=== PATIENT | female | born 1970 | race Caucasian/White ===

== ENCOUNTER 2018-05-01 11:14 | Day surgery (SDC) | payer BC ==
[2018-05-01] MEDS ORDERED: PROPOFOL 20 ML (12:46)
[2018-05-01] MEDS ORDERED: LIDOCAINE 2% (SDV) 5 ML INJ (12:46)
[2018-05-01] MEDS ORDERED: MIDAZOLAM 1 MG/ML 2 ML INJ (12:47)
[2018-05-01] MEDS ORDERED: ONDANSETRON 4 MG INJ (13:08)
[2018-05-01] MEDS ORDERED: FAMOTIDINE 20 MG INJ (13:08)
== END 2018-05-01 17:38 | disposition home or self-care (01) ==
LOC: GIL 11:14
DX: K29.50 Unspecified chronic gastritis without bleeding (principal); E11.9 Type 2 diabetes mellitus without complications; E66.01 Morbid (severe) obesity due to excess calories; Z68.41 Body mass index [BMI] 40.0-44.9, adult
CPT/HCPCS: 43239; 82962; 88305; 88312

== ENCOUNTER 2019-06-17 05:28 | Emergency (ER) | payer SELFPAY, BC, OTHER ==
[2019-06-17 06:22] LABS: ADD MAN DIFF? NO
[2019-06-17 06:28] LABS: BASOPHILS % 0.4 % (0.0-2.0); EOSINOPHILS % 0.4 % (0.0-7.0); HEMATOCRIT 40.7 % (37.0-47.0); HEMOGLOBIN 13.5 g/dl (12.0-16.0); LYMPHOCYTES # 2.5 10^3/ul (0.8-2.9); LYMPHOCYTES % 30.8 % (15.0-51.0); MEAN CORPUSCULAR HEMOGLOBIN 27.6 pg (29.0-33.0); MEAN CORPUSCULAR HGB CONC 33.2 g/dl (32.0-37.0); MEAN CORPUSCULAR VOLUME 83.1 fl (82.0-101.0); MONOCYTE # 0.5 10^3/ul (0.3-0.9); MONOCYTES % 6.6 % (0.0-11.0); NEUTROPHIL # 4.9 10^3/ul (1.6-7.5); NEUTROPHILS % 61.3 % (39.0-77.0); PLATELET COUNT 323 10^3/UL (140-415); RED CELL DISTRIBUTION WIDTH 12.7 % (11.5-14.5)
[2019-06-17 06:28] LABS: WHITE BLOOD COUNT 8.1 10^3/ul (4.8-10.8)
[2019-06-17 06:33] LABS: ANION GAP 13 (5-13); BLOOD UREA NITROGEN 9 mg/dl (7-20); CALCIUM 10.1 mg/dl (8.4-10.2); CARBON DIOXIDE 24 mmol/L (21-31); CHLORIDE 104 mmol/L (97-110); CREATININE 0.56 mg/dl (0.44-1.00); Estimated GFR > 60 mL/min (>60); GLUCOSE 143 mg/dl (70-220); SODIUM 141 mmol/L (135-144)
[2019-06-17] MEDS: SOD CHLORIDE 0.9% 500 ML IV (06:44)
[2019-06-17] MEDS: LORAZEPAM 2 MG INJ IV (06:45)
[2019-06-17 07:13] LABS: POTASSIUM 3.4 mmol/L (3.5-5.1)
== END 2019-06-17 08:02 | disposition home or self-care (01) ==
LOC: E/R 05:28
DX: F41.9 Anxiety disorder, unspecified (principal); R20.2 Paresthesia of skin; R06.02 Shortness of breath; E11.9 Type 2 diabetes mellitus without complications; Z79.84 Long term (current) use of oral hypoglycemic drugs
CPT/HCPCS: 80048; 85025; 93005; 96374; 99284-25